=== PATIENT | male | born 1965 | race Caucasian/White ===

== ENCOUNTER 2020-09-22 06:43 | Inpatient (IN) ==
[2020-09-22] MEDS ORDERED: *HR* FentaNYL (PF) 100 MCG/2 ML VIAL ONE ×3 (07:32→12:07)
[2020-09-22] MEDS ORDERED: *HR* Rocuronium Bromide 50 MG/5 ML VIAL ONE ×2 (07:32→10:15)
[2020-09-22] MEDS ORDERED: Lidocaine -MPF 2% 2 ML VIAL ONE (07:32)
[2020-09-22] MEDS ORDERED: *HR* Midazolam HCl 5 MG/5 ML VIAL IVP ONE (07:33)
[2020-09-22] MEDS ORDERED: *HR* Propofol 200 MG/20 ML VIAL IVP ONE (07:33)
[2020-09-22] MEDS ORDERED: levoFLOXacin 500 MG/100 ML 500 MG/100 ML BAG IVPB ONE (07:42)
[2020-09-22] MEDS ORDERED: Ringers Solution, Lactated 1,000 ML IVC SCH (07:45)
[2020-09-22] MEDS ORDERED: Mannitol 20% 100 GM/500 ML IV.SOLN IVC ONE (08:00)
[2020-09-22] MEDS ORDERED: *HR* HYDROmorphone 2 MG TABLET PO PRN (08:06)
[2020-09-22] MEDS ORDERED: *HR* OxyCODONE Immed Rel 5 MG TABLET PO PRN (08:06)
[2020-09-22] MEDS ORDERED: Pregabalin 75 MG CAPSULE PO ONE (08:06)
[2020-09-22] MEDS ORDERED: *HR* Labetalol 20 MG/4 ML SYRINGE IVP PRN (08:06)
[2020-09-22] MEDS ORDERED: Heparin 1,000 UNITS/500 mL 500 ML ONE (08:07)
[2020-09-22] MEDS ORDERED: Famotidine 20 MG/2 ML VIAL ONE (08:08)
[2020-09-22] MEDS ORDERED: Acetaminophen IV 1,000 MG/100 ML BAG IVPB ONE (08:08)
[2020-09-22] MEDS ORDERED: *HR* Vasopressin 20 UNIT/ML VIAL ONE (08:19)
[2020-09-22] MEDS ORDERED: *HR* Magnesium Sulfate 1 GM/2 ML VIAL ONE (08:39)
[2020-09-22] MEDS ORDERED: Dexamethasone 4 MG/ML VIAL ONE (12:17)
[2020-09-22] MEDS ORDERED: Ondansetron 4 MG/2 ML VIAL ONE ×2 (12:17→14:07)
[2020-09-22] MEDS ORDERED: *HR* HYDROMORPHONE 2 MG/ML VIAL ONE (12:50)
[2020-09-22] MEDS ORDERED: *HR* Labetalol 20 MG/4 ML SYRINGE IVP ONE (12:57)
[2020-09-22] MEDS: *HR* HYDROmorphone (PF) 1 MG/ML SYRINGE IVP PRN ×2 (13:23→13:28)
[2020-09-22] MEDS ORDERED: Dexamethasone 4 MG/ML VIAL IVP ONE (14:06)
[2020-09-22] MEDS: Ondansetron 4 MG/2 ML VIAL IVP ONE ×2 (14:15→14:16)
[2020-09-22] MEDS ORDERED: *HR* Promethazine 25 MG/ML VIAL IM ONE (14:45)
[2020-09-22] MEDS ORDERED: Ondansetron 4 MG/2 ML VIAL IVP PRN (15:44)
[2020-09-22] MEDS ORDERED: Naloxone 0.4 MG/ML INJ IVP PRN (15:44)
[2020-09-22] MEDS: *HR* Heparin 5,000 UNIT/ML VIAL SQ SCH (17:49)
[2020-09-22] MEDS: Acetaminophen 325 MG TABLET PO PRN (17:55)
[2020-09-22] MEDS ORDERED: Temazepam 15 MG CAPSULE PO PRN (18:52)
[2020-09-22] MEDS: 0.9 % Sodium Chloride 1,000 ML IVC SCH (20:11)
[2020-09-22] MEDS: Ondansetron 4 MG/2 ML VIAL IVP PRN (20:19)
[2020-09-23] MEDS: Acetaminophen 325 MG TABLET PO PRN ×3 (01:10→14:54)
[2020-09-23] MEDS: *HR* Heparin 5,000 UNIT/ML VIAL SQ SCH ×2 (05:54→17:16)
[2020-09-23] MEDS: 0.9 % Sodium Chloride 1,000 ML IVC SCH (05:55)
[2020-09-23] MEDS ORDERED: 0.9 % Sodium Chloride 1,000 ML IVC SCH (07:03)
[2020-09-23 07:54] LABS: Basophils % 0.2 %; Hematocrit 44.6 % (37.5-50.1); Hemoglobin 15.1 g/dL (12.9-16.9); Immature Granulocytes % 0.5 % (0-4); Lymphocytes # 1.3 K/mcL (0.6-4.6); Lymphocytes % 7.9 %; Mean Corpuscular HGB Conc 33.9 g/dL (31.6-35.5); Mean Corpuscular Hemoglobin 31.5 pg (28.0-33.3); Mean Corpuscular Volume 92.9 fL (83.0-100.0); Mean Platelet Volume 10.7 fL (9.4-12.4); Monocytes # 1.7 K/mcL (0.0-1.3); Monocytes % 10.3 %; Neutrophils # 13.4 K/mcL (1.6-8.9); Platelet Count 227 K/mcL (140-400); Red Cell Distribution Width 12.5 % (11.5-14.5); Segmented Neutrophils % 81.1 %; White Blood Count 16.5 K/mcL (4.3-11.1)
[2020-09-23 08:05] LABS: Calcium 8.7 mg/dL (8.6-10.3); Potassium 4.3 mEq/L (3.5-5.1)
[2020-09-23] MEDS ORDERED: levoFLOXacin 500 MG/100 ML 500 MG/100 ML BAG IVPB ONE (09:00)
[2020-09-23] MEDS: *HR* OxyCODONE/APAP 5/325 TABLET PO PRN (19:09)
[2020-09-23] MEDS ORDERED: *HR* LORazepam 2 MG/ML VIAL IVP PRN (19:37)
[2020-09-24] MEDS: amLODIPine 5 MG TABLET PO SCH ×2 (05:20→08:58)
[2020-09-24] MEDS: *HR* OxyCODONE/APAP 5/325 TABLET PO PRN ×2 (05:38→15:53)
[2020-09-24] MEDS: *HR* Heparin 5,000 UNIT/ML VIAL SQ SCH (05:39)
[2020-09-24] MEDS: Ondansetron 4 MG/2 ML VIAL IVP PRN (06:45)
[2020-09-24 13:33] LABS: Hematocrit 44.6 % (37.5-50.1); Hemoglobin 15.1 g/dL (12.9-16.9); Mean Corpuscular HGB Conc 33.9 g/dL (31.6-35.5); Mean Corpuscular Hemoglobin 31.5 pg (28.0-33.3); Mean Corpuscular Volume 93.1 fL (83.0-100.0); Mean Platelet Volume 10.4 fL (9.4-12.4); Platelet Count 180 K/mcL (140-400); Red Blood Count 4.79 M/mcL (4.19-5.50); Red Cell Distribution Width 12.8 % (11.5-14.5); White Blood Count 10.9 K/mcL (4.3-11.1)
[2020-09-24 13:50] LABS: Calcium 8.9 mg/dL (8.6-10.3); Potassium 3.9 mEq/L (3.5-5.1)
[2020-09-24 14:13] VITALS: BP 168/96
[2020-09-26] MEDS ORDERED: CloNIDine Patch 0.2 MG PATCH (WEEKLY) TD SCH (09:00)
== END 2020-09-24 17:17 | disposition home or self-care (01) | DRG 442 ==
LOC: SAMDAY 06:43 → 3ANU 06:43
PROVIDERS: ADMIT Urology; ATTEND Urology